=== PATIENT | female | born 1940 | race African-American/Black ===

== ENCOUNTER 2017-02-22 01:32 | Emergency (ER) | payer MEDICARE, OTHER ==
[~2017-02-22] VITALS: Ht 165.1 cm; Wt 72.6 kg
[~2017-02-22 01:32] MED LIST: BENADRYL25 M3 PO; CHOLESTEROL MED; CYCLOBENZAPRINE10 MG ORAL; LOTREL5 CAP/10 C PO; NORCO 5-325 TA1 EAC1 PO; PLAVIX75 MG PO; PREVPAC PATIEN1 EACH ORAL; STATIN; TYLENOL EXTRA500 MG ORAL; VICODIN 5-5001 EACH ORAL
[2017-02-22 01:40] VITALS: BP 142/84
[2017-02-22] MEDS ORDERED: Oxymetazoline 0.05% Na Spray 30ml NASAL ONE (02:00)
[2017-02-22 02:50] LABS: PROTHROMBIN TIME 10.3 SEC (9.30-11.50)
[2017-02-22 02:57] LABS: ALANINE AMINOTRANSFERASE 7 U/L (3-33); ALBUMIN/GLOBULIN RATIO 0.9 (1.0-2.7); ANION GAP 16 (5-15); ASPARTATE AMINO TRANSFERASE 13 U/L (5-40); CALCIUM 9.6 mg/dL (8.6-10.2); CARBON DIOXIDE 25 mEQ/L (20-30); CHLORIDE 99 mEQ/L (98-107); CREATININE 2.1 mg/dL (0.5-0.9); HEMOLYSIS 5; POTASSIUM 3.3 mEQ/L (3.4-4.9); SODIUM 140 mEQ/L (135-145); TOTAL PROTEIN 7.7 g/dL (6.6-8.7)
[2017-02-22 03:11] LABS: EOSINOPHILS % (AUTO) 2.1 % (0.0-3.0); LYMPHOCYTES % (AUTO) 28.3 % (20.0-45.0); MEAN CORPUSCULAR HEMOGLOBIN 27.3 PG (27.0-31.0); MEAN CORPUSCULAR HGB CONC 32.4 G/DL (32.0-36.0); MEAN CORPUSCULAR VOLUME 84 FL (80-99); MEAN PLATELET VOLUME 11.4 FL (6.5-10.1); MONOCYTES % (AUTO) 10.8 % (1.0-10.0); NEUTROPHILS % (AUTO) 57.8 % (45.0-75.0); PLATELET COUNT 135 K/UL (150-450); RED BLOOD COUNT 4.94 M/UL (4.20-5.40)
[2017-02-22 03:33] VITALS: BP 129/76
[2017-02-22] MEDS ORDERED: AMOXICILLIN500 MG ORAL (03:46)
[2017-02-22 03:58] VITALS: BP 129/76
--- NOTE | 2017-02-24 12:05 | Emergency Room Report ---
History of Present Illness General Chief Complaint: Nosebleed Source: Patient Present Illness HPI Patient is a 76-year-old female who presented after increased nosebleed. Patient reported having increased bleeding from her right near. She denied recent trauma. Patient had prior history of hypertension. She stated onset was 1 day prior to arrival intermittently patient had increased bleeding. She denied taking blood thinners. Allergies: Coded Allergies: No Known Allergies (Verified , 01/02/12) Patient History Past Medical History: see triage record Now: No Reviewed Nursing Documentation: PMH: Agreed, PSxH: Agreed Nursing Documentation-PMH Hx Cardiac Problems: Yes Hx Hypertension: Yes Hx Cancer: No Hx Gastrointestinal Problems: Yes Hx Neurological Problems: Yes - brain tumor Hx Cerebrovascular Accident: Yes - 2011 Hx Transient Ischemic Attacks: Yes - february 2012 Hx Seizures: Yes Hx Headaches: Yes - MIGRANES "YEARS AGO" Review of Systems All Other Systems: negative except mentioned in HPI Physical Exam Vital Signs Date Time Temp Pulse Resp B/P Pulse Ox O2 Delivery O2 Flow Rate FiO2 02/22/17 01:35 96 16 142/84 96 Room Air Sp02 EP Interpretation: reviewed, normal General Appearance: normal inspection, well appearing, no apparent distress, alert, GCS 15 Head: atraumatic ENT: normal ENT inspection, hearing grossly normal, normal voice Neck: normal inspection, full range of motion, supple, no bony tend Respiratory: normal inspection, lungs clear, normal breath sounds, no respiratory distress, no retraction, no wheezing Cardiovascular #1: regular rate, rhythm, no edema Gastrointestinal: normal inspection, normal bowel sounds, non tender, soft, no guarding, no hernia Genitourinary: no CVA tenderness Musculoskeletal: normal inspection, back normal, normal range of motion Neurologic: normal inspection, alert, oriented x3, responsive, choir leader III-XII nml as tested, speech normal Psychiatric: normal inspection, judgement/insight normal, mood/affect normal Skin: normal inspection, normal color, no rash Medical Decision Making Diagnostic Impression: Primary Impression: Anterior epistaxis ER Course Patient is a 76-year-old female who presented for nosebleed. Differential diagnosis included was not limited to anemia, coagulopathy, thrombocytopenia among others. The patient had the bleeding from the right nare. The area was cleared of clots. Nasal packing was placed with resolution bleeding. Lab for studies were notable for mild thrombocytopenia. This was not enough to cause bleeding. Patient was advised to have the pack removed in one day she was given prescription for amoxicillin. Last Vital Signs Date Time Temp Pulse Resp B/P Pulse Ox O2 Delivery O2 Flow Rate FiO2 02/22/17 03:58 87 16 129/76 96 Room Air Status: improved Disposition: HOME, SELF-CARE Condition: Stable Scripts Amoxicillin* (AMOXIL*) 500 Mg Capsule 500 MG ORAL THREE TIMES A DAY, #21 CAP Prov: Kaushik Barillas 02/22/17 Patient Instructions: Nosebleed, [id number] Kaushik Barillas Feb 24, 2017 12:05
== END 2017-02-22 03:58 | disposition home or self-care (01) ==
LOC: EMR 02:12
DX: R04.0 Epistaxis (principal); I10 Essential (primary) hypertension; Z86.73 Personal history of transient ischemic attack (TIA), and cerebral infarction without residual deficits; I25.2 Old myocardial infarction
CPT/HCPCS: 30901; 36415; 80053; 85025; 85610; 85730; 86850; 86900; 86901; 99283

== ENCOUNTER 2017-02-23 09:39 | Emergency (ER) | payer MEDICARE, OTHER ==
[~2017-02-23] VITALS: Ht 165.1 cm; Wt 72.6 kg
[~2017-02-23 09:39] MED LIST changes: +AMOXICILLIN500 MG ORAL
[2017-02-23 09:50] VITALS: BP 123/74
[2017-02-23 10:45] VITALS: BP 123/74
--- NOTE | 2017-02-24 14:51 | Emergency Room Report ---
History of Present Illness General Chief Complaint: General Complaint Source: Patient Present Illness HPI 76-year-old female presents to ED for nasal packing removal. Patient had epistaxis in the right nostril and subsequently had a Rhino Rocket placed in her right nostril 3 days ago in this ER. Patient is here for packing removal. Patient was unable to contact her PMD. Patient states she feels well. Denies any pain. Denies any subsequent bleeding. Patient was prescribed antibiotics and states she is compliant with the medications. No other aggravating or relieving factors. Denies any other associated symptoms Allergies: Coded Allergies: No Known Allergies (Verified , 01/02/12) Patient History Past Medical History: HTN, CVA/TIA Past Surgical History: none Pertinent Family History: none Social History: Denies: alcohol use, drug use, smoking Last Menstrual Period: na Now: No Immunizations: UTD Reviewed Nursing Documentation: PMH: Agreed, PSxH: Agreed Nursing Documentation-PMH Past Medical History: No History, Except For Hx Cardiac Problems: Yes Hx Hypertension: Yes Hx Cancer: No Hx Gastrointestinal Problems: Yes Hx Neurological Problems: Yes - brain tumor Hx Cerebrovascular Accident: Yes - 2011 Hx Transient Ischemic Attacks: Yes - february 2012 Hx Seizures: Yes Hx Headaches: Yes - MIGRANES "YEARS AGO" Review of Systems All Other Systems: negative except mentioned in HPI Physical Exam Vital Signs Date Time Temp Pulse Resp B/P Pulse Ox O2 Delivery O2 Flow Rate FiO2 02/23/17 09:50 97.9 63 18 123/74 98 Room Air Sp02 EP Interpretation: reviewed, normal General Appearance: no apparent distress, alert, GCS 15, non-toxic Head: normocephalic, atraumatic Eyes: bilateral eye PERRL, bilateral eye normal inspection ENT: hearing grossly normal, normal pharynx, no angioedema, normal voice, other - rhinorocket Neck: full range of motion, supple/symm/no masses Respiratory: chest non-tender, lungs clear, normal breath sounds, speaking full sentences Cardiovascular #1: regular rate, rhythm, no edema Cardiovascular #2: 2+ carotid (R), 2+ carotid (L), 2+ radial (R), 2+ radial (L) , 2+ dorsalis pedis (R), 2+ dorsalis pedis (L) Gastrointestinal: normal bowel sounds, non tender, soft, non-distended, no guarding, no rebound Rectal: deferred Genitourinary: normal inspection, no CVA tenderness Musculoskeletal: back normal, gait/station normal, normal range of motion, non- tender Neurologic: alert, oriented x3, responsive, motor strength/tone normal, sensory intact, speech normal Psychiatric: judgement/insight normal, memory normal, mood/affect normal, no suicidal/homicidal ideation Reflexes: 3+ bicep (R), 3+ bicep (L), 3+ tricep (R), 3+ tricep (L), 3+ knee (R) , 3+ knee (L) Skin: normal color, no rash, warm/dry, well hydrated Lymphatic: no adenopathy Medical Decision Making Diagnostic Impression: Primary Impression: Encounter for removal of nasal packing Additional Impression: Anterior epistaxis ER Course Hospital Course 76-year-old female presents to ED for nasal packing removal. Status post epistaxis Clinical course Patient placed on stretcher. I deflated the balloon on the rhino rocket and subsequently removed the packing. On reassessment the airways are patent and there is no evidence of bleeding from the right naris. Reassurance given to the patient. recommend followup with ENT. Encourage patient to complete her antibiotic prescription Diagnosis - encounter for removal of nasal packing, anterior epistaxis Stable and discharged to home. continue abx as directed. Followup with PMD. Return to ED if any signs of infection develop Last Vital Signs Date Time Temp Pulse Resp B/P Pulse Ox O2 Delivery O2 Flow Rate FiO2 02/23/17 10:45 97.9 63 18 123/74 98 Room Air Status: improved Disposition: HOME, SELF-CARE Condition: Stable Referrals: GEMMA EDGE Vishal MD NON PHYSICIAN (PCP) Patient Instructions: Nosebleed, [id number] Additional Instructions: make sure you complete your antibiotic prescription as directed. JOHN HILLS M.D. Feb 24, 2017 14:51
== END 2017-02-23 10:45 | disposition home or self-care (01) ==
LOC: EMR 10:37
DX: R04.0 Epistaxis (principal); I10 Essential (primary) hypertension; Z86.73 Personal history of transient ischemic attack (TIA), and cerebral infarction without residual deficits; Z86.011 Personal history of benign neoplasm of the brain; Z48.00 Encounter for change or removal of nonsurgical wound dressing
CPT/HCPCS: 99283

== ENCOUNTER 2019-06-30 09:40 | Emergency (ER) | payer MEDICARE, OTHER ==
[~2019-06-30] VITALS: Ht 165.1 cm; Wt 72.6 kg
[~2019-06-30 09:40] MED LIST changes: +ASPIR 8181 MG ORAL; +FUROSEMIDE20 M1 ORAL
[2019-06-30 09:48] VITALS: BP 145/80
--- NOTE | 2019-06-30 09:48 | NUR ---
ED Nurse Note: pt presents to ED with an abscess on the top, left side of her scalp. pt states that she has noticed a bump there for 2 weeks but last PM it started to hurt which she rates an 04/30. pt reports applying a warm compress to the area, some white crust is noted around the abscess. pt last had something like this 5 years ago and denies any medical history other than HTN and that she takes ASA daily, Addendum: 06/30/19 at 1000 by [facility] ED Nurse Note: abscess measures about 0.75 cm in diameter
[2019-06-30] MEDS ORDERED: MUPIROCIN22 GM TOPIC (10:47)
[2019-06-30 10:54] VITALS: BP 123/75
--- NOTE | 2019-06-30 10:54 | NUR ---
ER DISCHARGE NOTE: Patient is cleared to be discharged per ERMD, pt is aox4, on room air, with stable vital signs. pt was given dc and prescription instructions, pt was able to verbalize understanding, pt id band removed without complications. pt is able to ambulate with steady gait. pt took all belongings.
--- NOTE | 2019-06-30 12:33 | Emergency Room Report ---
History of Present Illness General Chief Complaint: Skin Rash/Abscess Source: Patient Present Illness HPI Patient presents emergency department today complaining of a bump on top of her scalp on the left side. She states that she has had a for about a week or so and it is tender and painful. She denies any discharge. No history of trauma. No other complaints are noted. Symptoms noted to mild. No other modifying factors. No other associated signs and symptoms. No other complaints were noted. Allergies: Coded Allergies: No Known Allergies (Verified , 01/02/12) Patient History Past Medical History: HTN, CAD, other - Tumor, CVA, TIA, seizures Past Surgical History: none Social History: Denies: smoking, alcohol use, drug use Now: No Reviewed Nursing Documentation: PMH: Agreed; PSxH: Agreed Nursing Documentation-PMH Past Medical History: No History, Except For Hx Cardiac Problems: Yes Hx Hypertension: Yes Hx Cancer: No Hx Gastrointestinal Problems: Yes Hx Neurological Problems: Yes - brain tumor Hx Cerebrovascular Accident: Yes - 2011 Hx Transient Ischemic Attacks: Yes - february 2012 Hx Seizures: Yes Hx Headaches: Yes - MIGRANES "YEARS AGO" Review of Systems All Other Systems: negative except mentioned in HPI Physical Exam Vital Signs Date Time Temp Pulse Resp B/P (MAP) Pulse Ox O2 Delivery O2 Flow Rate FiO2 06/30/19 09:41 98.2 65 16 145/80 (101) 97 Room Air Sp02 EP Interpretation: reviewed, normal General Appearance: normal inspection, well appearing, no apparent distress, alert Head: atraumatic, other - Folliculitis swelling nodule on left scalp Eyes: bilateral eye normal inspection ENT: normal ENT inspection, hearing grossly normal, normal voice Neck: normal inspection, full range of motion, supple, no bony tend Respiratory: normal inspection, lungs clear, normal breath sounds, no respiratory distress, no retraction, no wheezing Cardiovascular #1: regular rate, rhythm, no edema Gastrointestinal: normal inspection, normal bowel sounds, non tender, soft, no guarding, no hernia Genitourinary: no CVA tenderness Musculoskeletal: normal inspection, back normal, normal range of motion Neurologic: normal inspection, alert, responsive, speech normal Psychiatric: normal inspection, judgement/insight normal, mood/affect normal Medical Decision Making Diagnostic Impression: Primary Impression: Folliculitis ER Course Patient presents emergency department today complaining of bump on the left side of the head. Differential considerations include folliculitis, abscess, cellulitis. Patient's exam is consistent with colitis. I felt the patient would benefit from Bactroban topically. Patient is advised to follow up with primary doctor in 2-3 days and return the emergency room for any worsening symptoms and as needed. Last Vital Signs Date Time Temp Pulse Resp B/P (MAP) Pulse Ox O2 Delivery O2 Flow Rate FiO2 06/30/19 09:48 98.2 16 145/80 97 Room Air 06/30/19 09:41 65 Status: improved Disposition: HOME, SELF-CARE Condition: Stable Scripts Mupirocin* (MUPIROCIN*) 22 Gm Oint...g. 1 APPLIC TOPIC THREE TIMES A DAY for 10 Days, GM Prov: Rajeev Dover MD 06/30/19 Patient Instructions: Folliculitis Rajeev Dover MD Jun 30, 2019 12:33
== END 2019-06-30 10:54 | disposition home or self-care (01) ==
LOC: EMR 10:40
DX: L73.9 Follicular disorder, unspecified (principal); I10 Essential (primary) hypertension; I25.10 Atherosclerotic heart disease of native coronary artery without angina pectoris; Z86.73 Personal history of transient ischemic attack (TIA), and cerebral infarction without residual deficits
CPT/HCPCS: 99282

== ENCOUNTER 2019-12-13 10:58 | Emergency (ER) | payer MEDICARE, OTHER ==
[~2019-12-13] VITALS: Ht 165.1 cm; Wt 72.1 kg
[~2019-12-13 10:58] MED LIST changes: +MUPIROCIN22 GM TOPIC
--- NOTE | 2019-12-13 11:23 | NUR ---
ED Nurse Note: Pt walked into ED w/ c/o upper chest pain she says feels "gassy." Pt has had CP for 1 week, denies nausea or vomiting. She lives at home and gets regular visit from family. Pt is set up on monitor. EKG taken, blood labs sent.
[2019-12-13 11:26] VITALS: BP 146/91
[2019-12-13] MEDS ORDERED: Omnipaque-300 100ml vial INJ ONE (11:30)
[2019-12-13] MEDS ORDERED: Mylanta II UD 30ml ORAL ONE (11:30)
[2019-12-13] MEDS ORDERED: Aspirin Baby 81mg ORAL ONE (11:30)
[2019-12-13 11:38] LABS: BASOPHILS % (AUTO) 0.6 % (0.0-2.0); EOSINOPHILS % (AUTO) 0.4 % (0.0-3.0); HEMATOCRIT 44.3 % (37.0-47.0); HEMOGLOBIN 14.5 G/DL (12.0-16.0); LYMPHOCYTES % (AUTO) 15.2 % (20.0-45.0); MEAN CORPUSCULAR VOLUME 80 FL (80-99); MONOCYTES % (AUTO) 10.9 % (1.0-10.0); PLATELET COUNT 167 K/UL (150-450); RED BLOOD COUNT 5.53 M/UL (4.20-5.40); RED CELL DISTRIBUTION WIDTH 14.6 % (11.6-14.8); WHITE BLOOD COUNT 10.6 K/UL (4.8-10.8)
[2019-12-13 12:00] LABS: ANION GAP 12 mmol/L (5-15); BLOOD UREA NITROGEN 21 mg/dL (7-18); CALCIUM 9.6 MG/DL (8.5-10.1); CARBON DIOXIDE 27 MMOL/L (21-32); CHLORIDE 103 MMOL/L (98-107); CREATININE 1.9 MG/DL (0.55-1.30); POTASSIUM 3.5 MMOL/L (3.5-5.1); SODIUM 142 MMOL/L (136-145)
[2019-12-13 12:12] LABS: ALANINE AMINOTRANSFERASE 19 U/L (12-78); ALBUMIN 3.6 G/DL (3.4-5.0); ALBUMIN/GLOBULIN RATIO 0.8 (1.0-2.7); ALKALINE PHOSPHATASE 111 U/L (46-116); ASPARTATE AMINO TRANSFERASE 21 U/L (15-37); BILIRUBIN,DIRECT 0.3 MG/DL (0.0-0.3); BILIRUBIN,TOTAL 1.6 MG/DL (0.2-1.0)
--- NOTE | 2019-12-13 13:11 | Diagnostic Imaging Report ---
Indication: Dyspnea Comparison: 01/01/2019 A single view chest radiograph was obtained. Findings: No definite infiltrate or pulmonary vascular congestion identified. The heart is enlarged. The aorta is mildly enlarged consistent with atherosclerotic vascular disease. The bones are osteopenic. There are thoracic vertebral enthesophytes at multiple levels. Impression: No acute disease
--- NOTE | 2019-12-13 13:57 | Diagnostic Imaging Report ---
Indication: Chest pain Technique: Continuous helical transaxial imaging of the chest was obtained from the thoracic inlet to the upper abdomen. No intravenous contrast was administered. Coronal 2-D reformats were also obtained. Total Dose length Product (DLP): 207.[address] Dose Index Volume (CTDIvol): 5.4 mGy Comparison: none Findings: There is minimal posterior basal atelectasis. Lungs are clear otherwise. There is a hiatal hernia present. Also the esophagus appears mildly dilated. Aorta is calcified. Heart is unremarkable. Punctate calcifications are present within both kidneys consistent with nonobstructive stones. There is a calcification in the splenic hilum. This is probably parenchymal involving part of the spleen. IMPRESSION: No acute cardiopulmonary abnormalities. No evidence of pneumonia. Minimal posterior basal atelectasis Arterial vascular disease Dilated esophagus with slightly thickened wall. Consider endoscopy for further evaluation. Bilateral nonobstructive renal stones. 1 cm calcification in the spleen nonspecific. This is probably parenchymal and may be due to old granulomatous disease or possibly vascular in nature such as a small splenic artery aneurysm. The CT scanner at [facility] is accredited by the [employer] and the scans are performed using dose optimization techniques as appropriate to a performed exam including Automatic Exposure control.
--- NOTE | 2019-12-13 14:32 | Emergency Room Report ---
History of Present Illness General Chief Complaint: Chest Pain Source: Patient Present Illness HPI This patient states for the past week she has had intermittent chest pain daily. She states that there is a burning sensation in her chest and she feels gassy. She states she has had this before and has been diagnosed with acid reflux. She denies cough or congestion. She denies fever or chills. She denies nausea or vomiting. She does have some epigastric pain. She denies dysuria or hematuria. She has no other complaints. COVID-19 risk:Contact w/high r: No COVID-19 risk:Travel to affect: No Has patient experienced king: No Allergies: Coded Allergies: No Known Allergies (Verified , 01/02/12) Patient History Past Medical History: see triage record, HTN, GERD, CVA/TIA, seizures Social History: Denies: smoking, alcohol use, drug use Now: No Reviewed Nursing Documentation: PMH: Agreed; PSxH: Agreed Nursing Documentation-PMH Hx Cardiac Problems: Yes Hx Hypertension: Yes Hx Cancer: No Hx Gastrointestinal Problems: Yes Hx Neurological Problems: Yes - brain tumor Hx Cerebrovascular Accident: Yes - 2011 Hx Transient Ischemic Attacks: Yes - february 2012 Hx Seizures: Yes Hx Headaches: Yes - MIGRANES "YEARS AGO" Review of Systems All Other Systems: negative except mentioned in HPI Physical Exam Vital Signs Date Time Temp Pulse Resp B/P (MAP) Pulse Ox O2 Delivery O2 Flow Rate FiO2 12/13/19 11:05 98.2 82 18 148/95 (112) 96 Room Air 12/13/19 11:26 98 Sp02 EP Interpretation: reviewed, normal General Appearance: no apparent distress, alert, GCS 15, non-toxic Head: normocephalic, atraumatic Eyes: bilateral eye normal inspection, bilateral eye PERRL ENT: hearing grossly normal, normal pharynx, no angioedema, normal voice Neck: full range of motion, supple/symm/no masses Respiratory: chest non-tender, lungs clear, normal breath sounds, no respiratory distress, no retraction, no accessory muscle use, speaking full sentences Cardiovascular #1: regular rate, rhythm, no edema Gastrointestinal: normal bowel sounds, soft, non-distended, no guarding, no rebound, tenderness - epigatrium Rectal: deferred Musculoskeletal: back normal, normal range of motion, gait/station normal, non- tender Neurologic: alert, motor strength/tone normal, oriented x3, sensory intact, responsive, speech normal Psychiatric: judgement/insight normal, memory normal, mood/affect normal, no suicidal/homicidal ideation Reflexes: 3+ bicep (R), 3+ bicep (L), 3+ tricep (R), 3+ tricep (L), 3+ knee (R) , 3+ knee (L) Skin: no rash, normal color Medical Decision Making Diagnostic Impression: Primary Impression: Chest pain Additional Impression: Gastritis ER Course This patient has a clinical presentation consistent with gastritis. The location of the pain and history and physical examination is consistent with this. I considered other concerning differentials, to include appendicitis, cholelithiasis, cholecystitis, pancreatitis, perforated viscus, aortic aneurysm , and pyelonephritis to name a few. Given the length of symptoms, this workup is very reassuring with negative cardiac enzymes, normal EKG, and normal chest x -ray. The patient symptoms are atypical for acute coronary syndrome. I have very low suspicion for PE, aortic dissection or pneumothorax based on history/ physical, laboratory and radiologic workup. The patient was given close return precautions and followup instructions. Laboratory Tests Test 12/13/19 11:21 White Blood Count 10.6 K/UL (4.8-10.8) Red Blood Count 5.53 M/UL (4.20-5.40) H Hemoglobin 14.5 G/DL (12.0-16.0) Hematocrit 44.3 % (37.0-47.0) Mean Corpuscular Volume 80 FL (80-99) Mean Corpuscular Hemoglobin 26.2 PG (27.0-31.0) L Mean Corpuscular Hemoglobin Concent 32.7 G/DL (32.0-36.0) Red Cell Distribution Width 14.6 % (11.6-14.8) Platelet Count 167 K/UL (150-450) Mean Platelet Volume 8.6 FL (6.5-10.1) Neutrophils (%) (Auto) 73.0 % (45.0-75.0) Lymphocytes (%) (Auto) 15.2 % (20.0-45.0) L Monocytes (%) (Auto) 10.9 % (1.0-10.0) H Eosinophils (%) (Auto) 0.4 % (0.0-3.0) Basophils (%) (Auto) 0.6 % (0.0-2.0) Sodium Level 142 MMOL/L (136-145) Potassium Level 3.5 MMOL/L (3.5-5.1) Chloride Level 103 MMOL/L (98-107) Carbon Dioxide Level 27 MMOL/L (21-32) Anion Gap 12 mmol/L (5-15) Blood Urea Nitrogen 21 mg/dL (7-18) H Creatinine 1.9 MG/DL (0.55-1.30) H Estimated Glomerular Filtration Rate 31.0 mL/min (>60) Glucose Level 108 MG/DL (74-106) H Calcium Level 9.6 MG/DL (8.5-10.1) Total Bilirubin 1.6 MG/DL (0.2-1.0) H Direct Bilirubin 0.3 MG/DL (0.0-0.3) Aspartate Amino Transferase (AST) 21 U/L (15-37) Alanine Aminotransferase (ALT) 19 U/L (12-78) Alkaline Phosphatase 111 U/L (46-116) Troponin I 0.004 ng/mL (0.000-0.056) Total Protein 8.4 G/DL (6.4-8.2) H Albumin 3.6 G/DL (3.4-5.0) Globulin 4.8 g/dL Albumin/Globulin Ratio 0.8 (1.0-2.7) L EKG Diagnostic Results Rate: normal Rhythm: NSR ST Segments: no acute changes Rhythm Strip Diag. Results EP Interpretation: yes Rate: NSST rucker Rhythm: NSR, no PVC's, no ectopy Chest X-Ray Diagnostic Results Chest X-Ray Diagnostic Results : Chest X-Ray Ordered: Yes # of Views/Limited/Complete: 1 View Indication: Chest Pain EP Interpretation: Yes Interpretation: no consolidation, no effusion, no pneumothorax, no acute cardiopulmonary disease Impression: No acute disease Electronically Signed by: Lurdes Cowan DO CT/MRI/US Diagnostic Results CT/MRI/US Diagnostic Results : Imaging Test Ordered: CT Chest Impression No acute cardiopulmonary abnormalities. No evidence of pneumonia. Minimal posterior basal atelectasis Arterial vascular disease Dilated esophagus with slightly thickened wall. Consider endoscopy for further evaluation. Bilateral nonobstructive renal stones. 1 cm calcification in the spleen nonspecific. This is probably parenchymal and may be due to old granulomatous disease or possibly vascular in nature such as a small splenic artery aneurysm. Last Vital Signs Date Time Temp Pulse Resp B/P (MAP) Pulse Ox O2 Delivery O2 Flow Rate FiO2 12/13/19 11:26 98.2 86 16 146/91 98 Room Air 12/13/19 11:26 98 Status: improved Disposition: HOME, SELF-CARE Condition: Improved Referrals: NON PHYSICIAN (PCP) Patient Instructions: Heartburn, Nonspecific Chest Pain Lurdes Cowan DO Dec 13, 2019 14:32
[2019-12-13] MEDS ORDERED: NEXIUM40 MG ORAL (14:35)
--- NOTE | 2019-12-13 14:47 | NUR ---
ER DISCHARGE NOTE: Patient is cleared to be discharged per ERMD, pt is aox4, on room air, with stable vital signs. pt was given dc and prescription instructions, pt was able to verbalize understanding, pt id band removed. pt is able to ambulate with steady gait. pt took all belongings.
[2019-12-13 14:48] VITALS: BP 142/90
== END 2019-12-13 14:49 | disposition home or self-care (01) ==
LOC: EMR 11:53
DX: R07.9 Chest pain, unspecified (principal); K29.70 Gastritis, unspecified, without bleeding; K21.9 Gastro-esophageal reflux disease without esophagitis; I10 Essential (primary) hypertension; G40.909 Epilepsy, unspecified, not intractable, without status epilepticus; Z86.73 Personal history of transient ischemic attack (TIA), and cerebral infarction without residual deficits; N20.0 Calculus of kidney; J98.11 Atelectasis; I99.9 Unspecified disorder of circulatory system
CPT/HCPCS: 36415; 71045; 71250; 80053; 82248; 84484; 85025; 93005; 96374; 99284; S0028

== ENCOUNTER 2020-03-02 13:55 | Emergency (ER) | payer MEDICARE, OTHER ==
[~2020-03-02] VITALS: Ht 165.1 cm; Wt 73.5 kg
[~2020-03-02 13:55] MED LIST changes: +NEXIUM40 MG ORAL
[2020-03-02 14:15] VITALS: BP 128/74
--- NOTE | 2020-03-02 14:27 | Emergency Room Report ---
History of Present Illness General Chief Complaint: General Complaint Source: Patient Present Illness HPI Disclaimer: Please note that this report is being documented using Message [employer] technology. This can lead to erroneous entry secondary to incorrect interpretation by the dictating instrument. HPI: 74-year-old female history of hypertension and stroke presented for left- hand weakness. Patient states approximately 2 days ago she noted that her left hand was weak and she was dropping objects. This has continued to today. So she came in for evaluation. She has had a stroke in the past approximately 7 years ago, also with left-sided weakness at that time. She says it has since improved. 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 No trauma. No headache. Denies pain. PMH: Hypertension and stroke PSH: Reviewed Social Hx: Denies smoking drinking or illicit drug use Allergies: Coded Allergies: No Known Allergies (Verified , 01/02/12) COVID-19 Screening Contact w/high risk pt: No Recent Travel to affected area: No Experienced COVID-19 symptoms?: No COVID-19 Testing performed REPORT CHECKER: No Patient History Reviewed Nursing Documentation: PMH: Agreed; PSxH: Agreed Nursing Documentation-PMH Past Medical History: No History, Except For Hx Cardiac Problems: Yes Hx Hypertension: Yes Hx Cancer: No Hx Gastrointestinal Problems: Yes Hx Neurological Problems: Yes - brain tumor Hx Cerebrovascular Accident: Yes - 2011 Hx Transient Ischemic Attacks: Yes - february 2012 Hx Seizures: Yes Hx Headaches: Yes - MIGRANES "YEARS AGO" Review of Systems All Other Systems: negative except mentioned in HPI Physical Exam Vital Signs Date Time Temp Pulse Resp B/P (MAP) Pulse Ox O2 Delivery O2 Flow Rate FiO2 03/02/20 14:06 98.4 68 20 128/74 (92) 95 Room Air Sp02 EP Interpretation: reviewed, normal General Appearance: well appearing, no apparent distress Head: normocephalic, atraumatic Eyes: bilateral eye PERRL, bilateral eye EOMI ENT: hearing grossly normal, moist mucus membranes Neck: full range of motion, supple Respiratory: lungs clear, normal breath sounds, no rhonchi, no respiratory distress, no retraction, no wheezing Cardiovascular #1: normal peripheral pulses, regular rate, rhythm, no murmur Gastrointestinal: non tender, soft, non-distended, no guarding Neurologic: alert, soap tender III-XII nml as tested, oriented x3, sensory intact, cerebellar normal, other - Right upper and lower extremity strength 5 out of 5 left upper extremity strength 4 out of 5 left lower extremity strength 4+ out of 5 Skin: normal color, warm/dry Procedures Critical Care Time Critical Care Time Critical care is made on this patient due to presentation with concern for stroke requiring my acute intervention. Critical care time is 36 minutes and excludes procedures. Medical Decision Making Diagnostic Impression: Primary Impression: Subdural hematoma Additional Impressions: Subarachnoid hemorrhage Left-sided weakness ER Course MDM: Patient presented from home for left-sided weakness differential included but not limited to stroke, intracranial hemorrhage, increased tumor burden to name a few Clinical course-patient was placed on a gurney IV inserted cardiac monitoring pulse oximetry EKG laboratory studies ordered. She did present 2 days after onset of symptoms so she was outside the interventional window. The scan was not working when patient presented so MRI of the brain was ordered. MRI of the brain showed evidence of subdural hematoma subarachnoid hemorrhage. No ischemic changes noted. I suspect her increased left-sided weakness is secondary to her subdural hematoma. Patient did admit to me that she did have a fall 2 days ago as well around the time her symptoms started so may be this was the time when she developed the subdural hematoma. Blood pressure was stable. But due to the findings of intracranial hemorrhage will need to be transferred for higher level of care. Patient also has multiple meningiomas noted on MRI. She is currently followed at [facility] the patient was arranged for transfer for higher level of care to [facility]. I spoke with Dr. Daly who accepted patient for transfer. Labs - Laboratory Tests Test 03/02/20 14:40 White Blood Count 5.6 K/UL (4.8-10.8) Red Blood Count 4.63 M/UL (4.20-5.40) Hemoglobin 12.1 G/DL (12.0-16.0) Hematocrit 40.3 % (37.0-47.0) Mean Corpuscular Volume 87 FL (80-99) Mean Corpuscular Hemoglobin 26.1 PG (27.0-31.0) L Mean Corpuscular Hemoglobin Concent 30.0 G/DL (32.0-36.0) L Red Cell Distribution Width 16.7 % (11.6-14.8) H Platelet Count 137 K/UL (150-450) L Mean Platelet Volume 9.8 FL (6.5-10.1) Neutrophils (%) (Auto) 52.3 % (45.0-75.0) Lymphocytes (%) (Auto) 31.8 % (20.0-45.0) Monocytes (%) (Auto) 11.5 % (1.0-10.0) H Eosinophils (%) (Auto) 3.5 % (0.0-3.0) H Basophils (%) (Auto) 0.9 % (0.0-2.0) Prothrombin Time 10.8 SEC (9.30-11.50) Prothrombin Time INR 1.0 (0.9-1.1) Activated Partial Thromboplast Time 29 SEC (23-33) Sodium Level 141 MMOL/L (136-145) Potassium Level 3.4 MMOL/L (3.5-5.1) L Chloride Level 104 MMOL/L (98-107) Carbon Dioxide Level 32 MMOL/L (21-32) Anion Gap 5 mmol/L (5-15) Blood Urea Nitrogen 20 mg/dL (7-18) H Creatinine 2.3 MG/DL (0.55-1.30) H Estimated Glomerular Filtration Rate 25.3 mL/min (>60) Glucose Level 91 MG/DL (74-106) Calcium Level 9.1 MG/DL (8.5-10.1) Total Bilirubin 0.5 MG/DL (0.2-1.0) Aspartate Amino Transferase (AST) 16 U/L (15-37) Alanine Aminotransferase (ALT) 16 U/L (12-78) Alkaline Phosphatase 84 U/L (46-116) Troponin I 0.000 ng/mL (0.000-0.056) Total Protein 7.5 G/DL (6.4-8.2) Albumin 3.2 G/DL (3.4-5.0) L Globulin 4.3 g/dL Albumin/Globulin Ratio 0.7 (1.0-2.7) L Triglycerides Level 110 MG/DL (30-150) Cholesterol Level 197 MG/DL (< 200) LDL Cholesterol 128 mg/dL (<100) H HDL Cholesterol 47 MG/DL (40-60) Cholesterol/HDL Ratio 4.2 (3.3-4.4) On reevaluation: Patient remained alert, oriented Plan-transfer to [facility] for higher level of care EKG Diagnostic Results Rate: normal Rhythm: NSR ST Segments: no acute changes Other Impression Low voltage, abnormal EKG Last Vital Signs Date Time Temp Pulse Resp B/P (MAP) Pulse Ox O2 Delivery O2 Flow Rate FiO2 03/02/20 14:06 98.4 68 20 128/74 (92) 95 Room Air Disposition: ADMITTED INPATIENT - [facility] to [facility] Condition: Serious Johnathon Bajwa M.D. Mar 02, 2020 14:27
[2020-03-02 14:58] LABS: BASOPHILS % (AUTO) 0.9 % (0.0-2.0); EOSINOPHILS % (AUTO) 3.5 % (0.0-3.0); HEMATOCRIT 40.3 % (37.0-47.0); HEMOGLOBIN 12.1 G/DL (12.0-16.0); LYMPHOCYTES % (AUTO) 31.8 % (20.0-45.0); MEAN CORPUSCULAR VOLUME 87 FL (80-99); MONOCYTES % (AUTO) 11.5 % (1.0-10.0); NEUTROPHILS % (AUTO) 52.3 % (45.0-75.0); PLATELET COUNT 137 K/UL (150-450); RED BLOOD COUNT 4.63 M/UL (4.20-5.40); RED CELL DISTRIBUTION WIDTH 16.7 % (11.6-14.8); WHITE BLOOD COUNT 5.6 K/UL (4.8-10.8)
[2020-03-02 15:13] LABS: ANION GAP 5 mmol/L (5-15); BLOOD UREA NITROGEN 20 mg/dL (7-18); CALCIUM 9.1 MG/DL (8.5-10.1); CARBON DIOXIDE 32 MMOL/L (21-32); CHLORIDE 104 MMOL/L (98-107); CREATININE 2.3 MG/DL (0.55-1.30); POTASSIUM 3.4 MMOL/L (3.5-5.1); SODIUM 141 MMOL/L (136-145)
[2020-03-02 15:19] LABS: ALANINE AMINOTRANSFERASE 16 U/L (12-78); ALBUMIN 3.2 G/DL (3.4-5.0); ALBUMIN/GLOBULIN RATIO 0.7 (1.0-2.7); ALKALINE PHOSPHATASE 84 U/L (46-116); ASPARTATE AMINO TRANSFERASE 16 U/L (15-37); BILIRUBIN,TOTAL 0.5 MG/DL (0.2-1.0); CHOLESTEROL 197 MG/DL (< 200); HDL CHOLESTEROL 47 MG/DL (40-60); TRIGLYCERIDES 110 MG/DL (30-150)
[2020-03-02 15:56] VITALS: BP 126/78
--- NOTE | 2020-03-02 16:00 | Diagnostic Imaging Report ---
Indication: Chest pain Technique: One view of the chest Comparison: 12/13/2019 Findings: There is suggestion of some hazy infiltrate at the medial right lung base. The remainder the lungs and pleural spaces are clear. The heart size is upper limits of normal. Impression: Right medial basilar hazy infiltrate, possibly pneumonia
--- NOTE | 2020-03-02 17:51 | Diagnostic Imaging Report ---
Indication: Left-sided weakness and numbness for 2 days Technique: sagittal T1 fast spin echo, axial T1 FLAIR, axial T2 FLAIR, axial T2 FS PROPELLER, axial T2* GRE, axial diffusion weighted images. ADC and exponential ADC maps generated Comparison: Head CT dated 10/24/2014. No comparison MRI. Findings: There is some high T2 FLAIR signal within the high posterior frontal sulci. This is associated with some areas of susceptibility on the GRE sequences. There is also a thin strip of high T2 FLAIR signal at the periphery of the posterior frontal lobe, anterior parietal lobe, and anterior temporal lobe, consistent with a small subdural hematoma. This measures only about 2 mm thick and does not result in significant mass effect These findings are not evident previously. However, there is some high posterior frontal low-attenuation on prior CT scan which does conform to the highest location of the GRE abnormality. Just above the floor of the anterior right anterior fossa, there is an extra-axial mass. This is lower than brain parenchyma and signal on the T1-weighted images, higher than brain parenchyma on the T2-weighted images, isointense on the T2 FLAIR, and demonstrates very bright signal on the diffusion weighted images. This measures 3 cm transverse by 1.5 cm in thickness by 2.5 cm craniocaudad. This is not an old evident on the prior CT scan.T his results in local mass effect, and shifts the anterior interhemispheric fissure leftward by 1 to 2 mm. There is no associated edema. Extending from the floor of the anterior right middle fossa to the posterior floor of the anterior fossa is a mass that measures 2.5 cm AP by 2.2 cm transverse by 3.4 cm craniocaudad. This is evident on the prior CT scan. This demonstrates lower signal in brain parenchyma on the T1 weighted sequences, on the T2 FLAIR, and on the T2-weighted sequences. It demonstrates a somewhat speckled appearance. This demonstrates low signal on the diffusion weighted images and is isointense on the GRE images. There is also some local mass effect, and appears to possibly compress the right middle cerebral artery. There is some adjacent edema which is also evident on the prior CT scan. 19 x 15 mm lesion is seen in the left cerebellopontine angle region, corresponding with lesion in this area described previously. There is high T2 signal with some volume loss in the right frontal parietal opercular region extending into the deep white matter, corresponding to some encephalomalacia demonstrated on prior CT scan. No abnormal foci of restricted parenchymal diffusion to suggest acute infarct demonstrated.. Is age-related enlargement of the ventricles and extra axial CSF spaces. Old lacunar infarct is seen in the left king radiata. This is also evident on the prior CT. Tiny old lacunar infarct is seen in the left midbrain. The vascular flow voids are preserved except for the right middle cerebral artery. Visualized orbits and sinuses are unremarkable. Impression: Negative for acute infarct High FLAIR signal in susceptibility artifact within the high posterior frontal sulci suspicious for a small area of subarachnoid hemorrhage. There is also a 2 mm thick right convexity subdural hematoma which appears acute. This demonstrates local mass effect. Right inferior anterior frontal region extra-axial mass demonstrating high diffusion signal. This is not evident on the prior 2015 exam and likely represents a new meningioma Multiple old meningiomas as described, including the anterior right middle fossa/posterior anterior fossa, left cerebellopontine angle, also demonstrated on prior CT scan. Evidence of old right frontal opercular region infarct Age-related volume loss Old left king radiata infarct Findings discussed by phone with Dr. Bajwa at the time of interpretation
[2020-03-02 18:05] VITALS: BP 129/74
[2020-03-02 19:06] VITALS: BP 132/87
[2020-03-02 21:30] VITALS: BP 133/82
[2020-03-02 23:47] VITALS: BP 118/76
[2020-03-03 00:29] VITALS: BP 141/82
== END 2020-03-03 00:07 | disposition short-term general hospital (02) ==
LOC: EMR 14:24 → 2E 14:48 → EDBD 14:48 → UNDOADMIN 14:48 → EDBEDREQ 15:50 → 2E 18:24 → EMR 03-03 00:07
DX: S06.5X9A Traumatic subdural hemorrhage with loss of consciousness of unspecified duration, initial encounter (principal); I60.9 Nontraumatic subarachnoid hemorrhage, unspecified; R53.1 Weakness; X58.XXXA Exposure to other specified factors, initial encounter; Y92.9 Unspecified place or not applicable; I10 Essential (primary) hypertension; Z86.73 Personal history of transient ischemic attack (TIA), and cerebral infarction without residual deficits; G40.909 Epilepsy, unspecified, not intractable, without status epilepticus
CPT/HCPCS: 36415; 70551; 71045; 80053; 80061; 84484; 85025; 85610; 85730; 93005; 99291